=== PATIENT | male | born 1975 | race Caucasian/White ===

== ENCOUNTER 2017-10-11 19:12 | Inpatient (IN) ==
[2017-10-11] MEDS ORDERED: NITROGLYCERIN 2% OINT 1 INCH/GM PACK TOP STA (19:36)
[2017-10-11] MEDS ORDERED: ASPIRIN 325 MG TABLET PO STA (19:36)
[2017-10-11] MEDS ORDERED: HEPARIN 1,000 UNIT/1 ML VIAL IV STA (19:47)
[2017-10-11 19:48] LABS: Basophils # 0.1 10*3/uL (0.0-0.2); Basophils % 0.8 % (0.0-0.8); Eosinophils # 0.1 10*3/uL (0.0-0.87); Eosinophils % 1.6 % (0.00-10.9); Hemoglobin 16.4 GM/DL (14.0-18.0); Immature Granulocytes % 0.3 %; Immature Granulocytes Absolute 0.02 #; Lymphocytes % 27.9 % (21.2-54.2); Mean Corpuscular HGB Conc 35.7 GM/DL (32-36); Mean Corpuscular Hemoglobin 32 PG (27-34); Mean Corpuscular Volume 88.8 FL (87-102); Mean Platelet Volume 12.4 FL (9.6-12.0); Monocytes # 0.5 10*3/uL (0.11-0.8); Monocytes % 6.7 % (1.7-12.7); Neutrophils # 4.6 10*3/uL (1.4-7.4); Neutrophils % 62.7 % (38.7-73.9); Platelet Count 177 T/CUMM (130-400); Red Blood Count 5.18 MC/CUMM (3.8-5.5); Red Cell Distribution Width 12.4 % (9.3-17.3); White Blood Count 7.3 T/CUMM (4-12)
[2017-10-11] MEDS ORDERED: MORPHINE 4 MG/1 ML VIAL IV STA (19:48)
[2017-10-11] MEDS ORDERED: ONDANSETRON 4 MG/2 ML VIAL IV STA (19:48)
[2017-10-11] MEDS ORDERED: TICAGRELOR 90 MG TABLET PO STA (19:49)
[2017-10-11] MEDS ORDERED: HEPARIN DRIP 25,000 UNITS/500 ML PREMIX IV SCH (20:00)
[2017-10-11 20:24] LABS: Albumin 4.6 G/DL (3.4-5.0); Bilirubin,Total 1.1 MG/DL (0.2-1.0); Calcium 9.2 MG/DL (8.5-10.1); Osmolality,Calculated 284.1 MOS/KG (273-304); Potassium 3.2 MMOL/L (3.5-5.1); Total Protein 7.9 G/DL (6.4-8.3)
[2017-10-11] MEDS ORDERED: ONDANSETRON 4 MG/2 ML VIAL IV PRN (20:51)
[2017-10-11] MEDS ORDERED: ZALEPLON 5 MG CAPSULE PO PRN (20:51)
[2017-10-11] MEDS ORDERED: METOPROLOL TARTRATE 25 MG TABLET PO STA (20:56)
[2017-10-11] MEDS ORDERED: ATORVASTATIN 40 MG TABLET PO STA (20:56)
[2017-10-11] MEDS: DEXTROSE 5% NACL 0.9% 1,000 ML IV SCH (22:20)
[2017-10-11] MEDS: METOPROLOL TARTRATE 25 MG TABLET PO SCH (22:50)
[2017-10-12] MEDS ORDERED: MORPHINE 4 MG/1 ML VIAL IV PRN (00:10)
[2017-10-12 02:10] LABS: Basophils # 0.1 10*3/uL (0.0-0.2); Basophils % 0.5 % (0.0-0.8); Eosinophils # 0.1 10*3/uL (0.0-0.87); Eosinophils % 0.5 % (0.00-10.9); Hemoglobin 14.9 GM/DL (14.0-18.0); Immature Granulocytes % 0.3 %; Immature Granulocytes Absolute 0.03 #; Lymphocytes % 20.8 % (21.2-54.2); Mean Corpuscular HGB Conc 36.3 GM/DL (32-36); Mean Corpuscular Hemoglobin 33 PG (27-34); Mean Corpuscular Volume 89.3 FL (87-102); Mean Platelet Volume 12.4 FL (9.6-12.0); Monocytes # 0.6 10*3/uL (0.11-0.8); Monocytes % 6.6 % (1.7-12.7); Neutrophils # 6.8 10*3/uL (1.4-7.4); Neutrophils % 71.3 % (38.7-73.9); Platelet Count 153 T/CUMM (130-400); Red Blood Count 4.59 MC/CUMM (3.8-5.5); Red Cell Distribution Width 12.5 % (9.3-17.3); White Blood Count 9.5 T/CUMM (4-12)
[2017-10-12 02:35] LABS: Albumin 3.8 G/DL (3.4-5.0); Bilirubin,Total 1.3 MG/DL (0.2-1.0); Calcium 8.7 MG/DL (8.5-10.1); Osmolality,Calculated 282.3 MOS/KG (273-304); Potassium 3.6 MMOL/L (3.5-5.1); Total Protein 6.3 G/DL (6.4-8.3)
[2017-10-12] MEDS: DEXTROSE 5% NACL 0.9% 1,000 ML IV SCH (05:34)
[2017-10-12] MEDS: ASPIRIN CHEW 81 MG TABLET PO SCH (08:00)
[2017-10-12] MEDS: METOPROLOL TARTRATE 25 MG TABLET PO SCH ×2 (08:00→08:43)
[2017-10-12] MEDS ORDERED: NITROGLYCERIN 2% OINT 1 INCH/GM PACK TOP ONE (08:25)
[2017-10-12 08:39] LABS: CKMB % 5.6 %; Risk Ratio 5.32; VLDL CHOLESTEROL 22.2 MG/DL
[2017-10-12 08:41] LABS: Troponin I Only 3.97 NG/ML (0.00-0.045)
[2017-10-12] MEDS ORDERED: DIAZEPAM 5 MG TABLET PO ONE (08:51)
[2017-10-12] MEDS ORDERED: POTASSIUM CHLORIDE RIDER 10 MEQ in PREMIX 1 EACH IV PRN (08:51)
[2017-10-12] MEDS ORDERED: diphenhydrAMINE CAP 25 MG CAPSULE PO ONE (08:51)
[2017-10-12] MEDS ORDERED: MAGNESIUM SULF RIDER 2 GM in PREMIX 1 EACH IV PRN (08:51)
[2017-10-12] MEDS: SODIUM CHLORIDE 0.45% 1,000 ML IV SCH ×2 (09:47→18:53)
[2017-10-12] MEDS ORDERED: HEPARIN/NACL 0.9% 2 UNITS/ML 1,000 ML IV ONE (10:08)
[2017-10-12] MEDS ORDERED: VERAPAMIL 5 MG/2 ML VIAL ONE (10:10)
[2017-10-12] MEDS ORDERED: NITROGLYCERIN DRIP 50 MG/250 ML BOTTLE IV ONE (10:10)
[2017-10-12] MEDS ORDERED: fentaNYL 100 MCG/2 ML VIAL ONE (10:20)
[2017-10-12] MEDS ORDERED: MIDAZOLAM 2 MG/2 ML VIAL ONE (10:20)
[2017-10-12] MEDS ORDERED: LIDOCAINE 1%/EPI INJ 20 ML VIAL ONE (10:52)
[2017-10-12] MEDS: TICAGRELOR 90 MG TABLET PO SCH ×2 (11:34→20:14)
[2017-10-12] MEDS: ATORVASTATIN 80 MG TABLET PO SCH (20:13)
[2017-10-13 04:31] LABS: Basophils % 0.5 % (0.0-0.8); Eosinophils # 0.2 10*3/uL (0.0-0.87); Eosinophils % 1.9 % (0.00-10.9); Hematocrit 41.8 VOL% (42.0-52.0); Hemoglobin 15.1 GM/DL (14.0-18.0); Immature Granulocytes % 0.3 %; Immature Granulocytes Absolute 0.02 #; Lymphocytes % 25.2 % (21.2-54.2); Mean Corpuscular HGB Conc 36.1 GM/DL (32-36); Mean Corpuscular Hemoglobin 32 PG (27-34); Mean Corpuscular Volume 89.3 FL (87-102); Mean Platelet Volume 12.8 FL (9.6-12.0); Monocytes # 0.6 10*3/uL (0.11-0.8); Neutrophils # 5.1 10*3/uL (1.4-7.4); Neutrophils % 64.1 % (38.7-73.9); Platelet Count 139 T/CUMM (130-400); Red Blood Count 4.68 MC/CUMM (3.8-5.5); Red Cell Distribution Width 12.8 % (9.3-17.3); White Blood Count 7.9 T/CUMM (4-12)
[2017-10-13 04:59] LABS: Calcium 8.6 MG/DL (8.5-10.1); Osmolality,Calculated 280.1 MOS/KG (273-304); Potassium 3.7 MMOL/L (3.5-5.1)
[2017-10-13] MEDS: SODIUM CHLORIDE 0.45% 1,000 ML IV SCH (05:03)
[2017-10-13] MEDS: LOSARTAN 25 MG TABLET PO SCH (08:35)
[2017-10-13] MEDS: ASPIRIN CHEW 81 MG TABLET PO SCH (08:35)
[2017-10-13] MEDS: PARoxetine 20 MG TABLET PO SCH (08:35)
[2017-10-13] MEDS: TICAGRELOR 90 MG TABLET PO SCH ×2 (08:35→21:11)
[2017-10-13] MEDS ORDERED: METOPROLOL SUCCINATE XL 25 MG TABLET PO SCH (09:00)
[2017-10-13] MEDS ORDERED: diphenhydrAMINE CAP 25 MG CAPSULE PO PRN (18:51)
[2017-10-13] MEDS ORDERED: MAGNESIUM HYDROXIDE SUSP 30 ML UDCUP PO PRN (18:52)
[2017-10-13] MEDS: ATORVASTATIN 80 MG TABLET PO SCH (21:11)
[2017-10-14 06:25] LABS: Calcium 9.1 MG/DL (8.5-10.1); Osmolality,Calculated 280.3 MOS/KG (273-304); Potassium 3.6 MMOL/L (3.5-5.1)
[2017-10-14] MEDS ORDERED: amLODIPine 5 MG TABLET PO SCH (09:00)
[2017-10-14] MEDS ORDERED: METOPROLOL TARTRATE 25 MG TABLET PO SCH (09:00)
[2017-10-14] MEDS ORDERED: ISOSORBIDE MONONITRATE 30 MG TABLET PO SCH (09:00)
[2017-10-14] MEDS: TICAGRELOR 90 MG TABLET PO SCH (09:22)
[2017-10-14] MEDS: ASPIRIN CHEW 81 MG TABLET PO SCH (09:22)
[2017-10-14] MEDS: LOSARTAN 25 MG TABLET PO SCH (09:22)
[2017-10-14] MEDS: PARoxetine 20 MG TABLET PO SCH (09:23)
[2017-10-14 11:01] VITALS: BP 143/61
== END 2017-10-14 11:54 | disposition home or self-care (01) | DRG 282 ==
LOC: N.ED 19:12 → N.EDINP 20:51 → N.ICU 21:50
PROVIDERS: ADMIT Internal Medicine Interventional Cardiology; ATTEND Internal Medicine Interventional Cardiology
PROC: CLCCHCL (ICD-10-PCS; 2017-10-12 11:15)